=== PATIENT | male | born 1970 | race Caucasian/White ===

== ENCOUNTER 2018-10-01 05:07 | Observation (INO) | payer OTHER, SELFPAY ==
[2018-10-01] VITALS (13 sets, daily range): BP systolic 114–167; BP diastolic 65–84; PULSE 64–84; RESP 12–23; TEMP 36.5–37.3; O2SAT 94–99
--- NOTE | 2018-10-01 05:32 | W.ED.GENAD ---
Discharge Plan Disposition Patient Disposition: [facility] INPATIENT Discharge Details Chief Complaint: Abd Prob Clinical Impression: Acute cholecystitis, Abdominal right upper quadrant tenderness Primary Care Provider: Jose E Jessica ED Provider: Drake Oakley Home Meds and New Rx's Prescriptions: No Action No Known Home Meds RF: 0 Medical Decision Making This is a pleasant 48-year-old male who presents today for evaluation of right upper quadrant abdominal pain. It is been present since 6 PM and began after eating. It radiates to his back, and it is sharp and achy in nature. It is associated with nausea no vomiting. Patient had an ultrasound done as an outpatient and surgical consult over a month ago, at which point he had gallstones but no evidence of impaction or cholecystitis. He was seen by Dr. Mena at that time. Currently the patient signs and symptoms are concerning for gallbladder pathology. We will get a CT scan to evaluate for any other acute process including intrahepatic abscess, intestinal pathology, or other abnormality. Currently we do not have ultrasound capability. We will control the patient's pain, rehydrate him, and pending laboratory and imaging workup consult surgery. 6:[address] results have returned and there is evidence of notable calcification in the gallbladder neck, with mild gallbladder distention and mild wall thickening. No evidence of ductal dilatation. Patient's transaminases also notably elevated compared to prior laboratory workup. Alk phos is also high. No white count. Troponin is 0.02. Lipase is normal. Pain is notably well controlled at this time. With the patient's physical exam findings, laboratory workup, and CT findings I feel his current clinical scenario is clinically correlative with cholecystitis. We have contacted surgery and I discussed the case with Dr. Briggs, he will come in for further evaluation of the patient. 7:[address] Briggs has seen and assessed the patient. He would like to bring the patient to the OR for potential cholecystectomy. I have extensively reviewed the treatment plan with the patient. I have addressed all patient concerns at this time. I have also discussed the plan with the admitting physician and they agree with the current assessment and plan and have agreed to assume responsibility for the patient. All parties demonstrate verbal understanding and agreement with our assessment and plan at this time. EKG 5:34 Rate 67, sinus rhythm, intervals normal, no ST elevations or depressions, no T wave inversions, no Q waves, minimal peaking of T waves in V3 V4 and V5. FINDINGS: Lower thorax: No acute findings. Questioned 2 mm nodule on the first image in the right fissure ABDOMEN: Liver: Hepatomegaly. Minimal intrahepatic biliary ductal prominence Gallbladder and bile ducts: Large rim calcified gallstone in the gallbladder neck with mild gallbladder distention and mild wall thickening. Additional faint calcified gallstones noted. No ductal dilation. Pancreas: Normal. No ductal dilation. Spleen: Normal. No splenomegaly. Adrenals: Normal. No mass. Kidneys and ureters: Normal. No hydronephrosis. Stomach and bowel: Borderline dilated loops of distal ileum filled with fluid may represent mild ileus. Appendix: No evidence of appendicitis. PELVIS: Bladder: Unremarkable as visualized. Reproductive: Unremarkable as visualized. ABDOMEN and PELVIS: Intraperitoneal space: Normal. No free air. No significant fluid collection. Bones/joints: No acute fracture. No dislocation. Chronic spondylolysis with grade I spondylolisthesis at L5-S1. Degenerative changes in the lumbar spine Soft tissues: Unremarkable. Vasculature: Normal. No abdominal aortic aneurysm. Lymph nodes: Normal. No enlarged lymph nodes. IMPRESSION: Abnormal gallbladder as described. Further evaluation with right upper quadrant ultrasound recommended Hepatomegaly and minimal intrahepatic biliary ductal prominence Question mild ileus in the distal ileum as noted Chronic pars defects with mild spondylolisthesis at L5-S1 Dictated and Authenticated by: Deandre Ann MD. HPI General Date/Time Provider Initiated Documentation: 10/01/18 05:20. HPI Narrative: This is a 48-year-old male with no significant past medical history who presents today for right upper quadrant pain. Patient has had right upper quadrant pain on an outpatient basis for which she is gotten an outpatient ultrasound which showed gallstones, but no evidence of obstruction or cholecystitis. He has seen Dr. Aguilar on an outpatient basis for evaluation of this. Patient states that he has been doing well with no significant problems until last night when after eating he had notable sharp and achy right upper quadrant pain. It is associated with nausea. It is made worse with pain and food, he has had nothing to eat since then because of the symptoms. Radiates straight to his back, which she describes as a stabbing sensation right into his back. The patient states that it is not improved by ibuprofen. He denies any diarrhea, hematemesis, hematochezia, melena, or acholic stool. Patient denies any other symptoms. Surgical history is positive for a TNA, he denies IV or illicit drug use, he denies any pertinent family history. Related Data Home Medications Medication Instructions Recorded Confirmed Unknown [No Known Home Meds] 11/21/16 10/01/18 Allergies Allergy/AdvReac Type Severity Reaction Status Date / Time No Known Allergies Allergy Unverified 10/01/18 05:14 General Stated Complaint: Abd Prob DARREN: 3 Review of Systems Review of Systems All systems reviewed & are unremarkable except as noted in HPI and below PFSH Social History household members: significant other Smoking/Tobacco Use Status: Former Tobacco Use alcohol intake: former substance use type: does not use Exam Narrative Exam Narrative: 1.Const: Well-nourished, Well-developed, appearing stated age 2.Eyes: PERRL, no conjunctival injection, and symmetrical lids. 3.ENT: Atraumatic external nose and ears. Moist MM. Neck: Symmetric, trachea midline, No thyromegaly. 4.CVS: +S1/S2, No murmurs or gallops. Peripheral pulses 2+ and equal in all extremities. Brisk capillary refill in all extremities. 5.RESP: Unlabored respiratory effort. Clear to auscultation bilaterally. No wheezes rales or rhonchi 6.GI: Soft, nondistended, no hepatosplenomegaly. No guarding or rebound. Notable right upper quadrant tenderness on palpation. Oddly enough there is no worsening of pain with inspiration or cessation of pain with inspiration. Bowel sounds are present. 7.MSK: Normocephalic/Atraumatic, Extremities w/o deformity or ttp No cyanosis or clubbing, Normal movement of all extremities 8.Skin: Warm, Dry. No rashes or lesions. 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 Sensation grossly intact, no focal neurologic deficits. 10.Psych: (AAO) x3. Appropriate mood and affect Course Vital Signs Temperature 36.5 C 10/01/18 05:11 Pulse 84 10/01/18 05:11 Respiratory Rate 20 10/01/18 05:11 Blood Pressure 167/84 H 10/01/18 05:11 Pulse Oximetry 98 10/01/18 05:11 Temperature 36.5 C 10/01/18 05:11 Temperature Source Temporal Artery Scan 10/01/18 05:11 Pulse 84 10/01/18 05:11 Respiratory Rate 20 10/01/18 05:11 Respiratory Effort Non-Labored 10/01/18 05:11 Blood Pressure 167/84 H 10/01/18 05:11 Blood Pressure Position Sitting 10/01/18 05:11 Pulse Oximetry 98 10/01/18 05:11 Oxygen Delivery Method Room Air 10/01/18 05:11 Oxygen Flow Rate 0 10/01/18 05:11 Pain Level 9 10/01/18 05:15
[2018-10-01] MEDS: MORPHine 10 MG/ML VIAL 4 MG IVP (05:43)
[2018-10-01] MEDS: Ketorolac 30 MG/ML VIAL 15 MG IVP (05:43)
[2018-10-01] MEDS: Normal Saline 1,000 ML 1000 ML IV (05:44)
[2018-10-01 05:45] LABS: Abs Immature Grans 0.08 k/cumm (0.0-0.09); Absolute Basophil Count 0.03 k/cumm (0.0-0.2); Absolute Eosinophil Count 0.06 k/cumm (0.0-0.7); Absolute Lymphocyte Count 1.75 k/cumm (1.2-3.4); Absolute Monocyte Count 0.81 k/cumm (0.11-0.7); Absolute Neutrophil Count 6.32 k/cumm (1.2-6.7); Basophils % 0.3; Eosinophils % 0.7; HCT 43.1 % (40.0-50.0); HGB 14.7 g/dL (13.5-17.5); Immature Grans % 0.9; Lymphocytes % 19.3; Mean Corp. HGB Concentration 34.1 g/dL (32.0-36.0); Mean Corpuscular Hemoglobin 27.5 pg (27.0-33.0); Mean Corpuscular Volume 80.6 fL (80-95); Mean Platelet Volume 8.1 fL (8.0-11.0); Neutrophils % 69.8; Platelet Count 239 x1000/uL (130-400); RBC 5.35 m/cumm (4.50-6.00); RBC Distribution Width 13.7 % (11.8-14.1); White Blood Cell Count 9.05 k/cumm (4.4-10.8)
[2018-10-01 06:04] LABS: ALT 431 U/L (12-78); AST 392 U/L (15-37); Albumin 3.5 g/dL (3.4-5.0); Alkaline Phosphatase 225 U/L (46-116); Anion Gap 7.7 mmol/L (3-11); BUN 18 mg/dL (7-18); Bilirubin, Total 0.4 mg/dL (0.2-1.0); CO2 26.3 mmol/L (21.0-32.0); Calcium 8.9 mg/dL (8.5-10.1); Chloride 103 mmol/L (98-107); Glucose 130 mg/dL (70-100); Lipase 151 U/L (73-393); Potassium 4.4 mmol/L (3.5-5.1); Sodium 137 mmol/L (136-145); Total Protein 7.4 g/dL (6.4-8.2)
--- NOTE | 2018-10-01 06:05 | DI.CT_ITS ---
SYMPTOMS/DIAGNOSIS: RIGHT UPPER QUADRANT PAIN, NAUSEA SINCE AFTER DINNER, KNOWN GALLSTONE, ? GALLBLADDER PATHOLOGY ABDOMINAL AND PELVIC CT: CT examination of the abdomen and pelvis was performed with a bolus infusion of 100 cc of Omnipaque 350. Images obtained through the lung bases show apparent mild linear scarring or atelectasis in the right middle lobe. Hepatic parenchyma appears fairly homogeneous. Questionable hepatic mass identified at ultrasound on 04/18/18 as a homogeneous echogenic lesion suggestive of hemangioma is not appreciated on this examination. Follow-up ultrasound suggested in October 2018. There is a large calcified gallstone and additional small minimally or uncalcified gallstones. Slight gallbladder wall thickening noted. No free fluid or free air noted. No biliary dilatation. The pancreas appears normal, as does the spleen. Adrenals and kidneys are unremarkable in appearance with no evidence of urinary tract calcification or obstruction. Urinary bladder is unremarkable in appearance. No significant abdominal wall hernias seen. No abdominal or pelvic adenopathy seen. The appendix is normal. No bowel obstruction or diverticulitis. Abdominal aorta is of normal diameter and no major vascular abnormality is seen. Incidental bilateral spondylolysis of L5 with minimal anterior spondylolisthesis of L5 on S1 noted. CONCLUSION: 1. Cholelithiasis with mild gallbladder wall thickening, cholecystitis not excluded. 2. Previously noted finding at ultrasound of an echogenic homogenous hepatic mass not correlated on today's CT. Follow-up ultrasound recommended six months after the ultrasound of April 2018, which would be October 2018.
[2018-10-01] MEDS: Omnipaque 350 MG/ML 100 ML BTL IJ (06:11)
[2018-10-01 06:19] LABS: Troponin I 0.02 ng/mL (0.00-0.06)
--- NOTE | 2018-10-01 06:35 | DI.VRAD_ITS ---
EXAM: CT Abdomen and Pelvis With Contrast EXAM DATE/TIME: 10/01/2018 5:31 AM CLINICAL HISTORY: 48 years old, male; Pain; Abdominal pain; Localized; Right upper quadrant (ruq); Patient HX: Ruq pain and nausea since last evening after dinner, known gallstone from prior ultrasound. TECHNIQUE: Axial computed tomography images of the abdomen and pelvis with intravenous contrast. All CT scans at this facility use at least one of these dose optimization techniques: automated exposure control; mA and/or kV adjustment per patient size (includes targeted exams where dose is matched to clinical indication); or iterative reconstruction. Coronal and sagittal reformatted images were created and reviewed. CONTRAST: 100 ml of Omnipaque 350 administered intravenously. COMPARISON: US ABDOMEN ULTRASOUND (P) 04/18/2018 12:51 PM FINDINGS: Lower thorax: No acute findings. Questioned 2 mm nodule on the first image in the right fissure ABDOMEN: Liver: Hepatomegaly. Minimal intrahepatic biliary ductal prominence Gallbladder and bile ducts: Large rim calcified gallstone in the gallbladder neck with mild gallbladder distention and mild wall thickening. Additional faint calcified gallstones noted. No ductal dilation. Pancreas: Normal. No ductal dilation. Spleen: Normal. No splenomegaly. Adrenals: Normal. No mass. Kidneys and ureters: Normal. No hydronephrosis. Stomach and bowel: Borderline dilated loops of distal ileum filled with fluid may represent mild ileus. Appendix: No evidence of appendicitis. PELVIS: Bladder: Unremarkable as visualized. Reproductive: Unremarkable as visualized. ABDOMEN and PELVIS: Intraperitoneal space: Normal. No free air. No significant fluid collection. Bones/joints: No acute fracture. No dislocation. Chronic spondylolysis with grade I spondylolisthesis at L5-S1. Degenerative changes in the lumbar spine Soft tissues: Unremarkable. Vasculature: Normal. No abdominal aortic aneurysm. Lymph nodes: Normal. No enlarged lymph nodes. IMPRESSION: Abnormal gallbladder as described. Further evaluation with right upper quadrant ultrasound recommended Hepatomegaly and minimal intrahepatic biliary ductal prominence Question mild ileus in the distal ileum as noted Chronic pars defects with mild spondylolisthesis at L5-S1 Dictated and Authenticated by: Deandre Ann MD. Ordering:ERICA Juan MD
--- NOTE | 2018-10-01 07:11 | NUR.NOTE ---
Assumed care of patient, Surgery is at the bedside.
[2018-10-01 07:40] LABS: Bilirubin Negative (Negative); Blood Negative (Negative); Clarity Clear; Glucose Negative (Negative); Ketones Negative (Negative); Leukocyte Esterase Negative (Negative); Nitrite Negative (Negative); Urobilinogen 0.2 EU/dL (Up TO 0.2); pH 5.5 (5-8)
--- NOTE | 2018-10-01 08:02 | NUR.NOTE ---
Report called to Holly on [facility].
--- NOTE | 2018-10-01 08:13 | HPE_ITS ---
Date of service: 10/01/18 Time of Service: 08:06 Assessment and Plan (1) Symptomatic cholelithiasis: Current visit: Yes Status: Acute (2) Alkaline phosphatase elevation: Current visit: Yes Status: Acute History of Present Illness Chief Complaint: right upper quadrant pain extending to the back Narrative: started last night after Janay dinner, fried potatos may have incited this attack, had a previous one >1 month ago Pertinent Surgical Information pt had adenoids out at 5yo no allergies no meds stopped smoking in 2013 Review of Systems Review of Systems All systems reviewed & are unremarkable except as noted in HPI and below Constitutional Reports as per HPI Gastrointestinal Reports as per HPI and Reports abdominal pain [facility] Medical History Liver lesion, right lobe (Acute) Well adult (Chronic) Hyperlipidemia, unspecified (Acute 04/28/18) Hemangioma of liver (Acute 04/28/18) Diastasis of rectus abdominis (Acute 04/28/18) Calculus of gallbladder without cholecystitis without obstruction (Acute 04/28/18) Family History Grandmother No problems noted. Grandmother Neoplasm Mother No problems noted. Father No problems noted. Sister No problems noted. Brother No problems noted. Brother No problems noted. Brother No problems noted. Grandfather Heart disease Grandfather Heart disease Neoplasm Social History household members: significant other Smoking/Tobacco Use Status: Former Tobacco Use alcohol intake: former substance use type: does not use Meds Home Medications Medication Instructions Recorded Confirmed Type Unknown [No Known Home Meds] 11/21/16 10/01/18 History Allergies Allergy/AdvReac Type Severity Reaction Status Date / Time No Known Allergies Allergy Unverified 10/01/18 05:14 Exam Narrative Exam Narrative: pain has improved with pain meds pt understands his condition all RBA were dw him and his girlfriend and decided on surgery GI Inspection: normal to inspection and obesity Percussion: normal to percussion Auscultation: normal bowel sounds Abdomen image: 1. RUQ pain Results Labs : 10/01/18 05:38 10/01/18 05:38 Laboratory Results - last 24 hr 10/01/18 10/01/18 10/01/18 05:38 05:38 05:38 WBC 9.05 RBC 5.35 Hgb 14.7 Hct 43.1 MCV 80.6 MCH 27.5 MCHC 34.1 RDW 13.7 Plt Count 239 MPV 8.1 Immature Gran % 0.9 Neutrophils % 69.8 Lymphocytes % 19.3 Monocytes % 9.0 Eosinophils % 0.7 Basophils % 0.3 Absolute Neutrophils 6.32 Absolute Lymphocytes 1.75 Absolute Monocytes 0.81 H Absolute Eosinophils 0.06 Absolute Basophils 0.03 Sodium 137 Potassium 4.4 Chloride 103 Carbon Dioxide 26.3 Anion Gap 7.7 BUN 18 Creatinine 1.00 Estimated GFR/1.73 m2 >= 60.00 Glucose 130 H Calcium 8.9 Total Bilirubin 0.4 AST 392 H ALT 431 H Alkaline Phosphatase 225 H Troponin I 0.02 Total Protein 7.4 Albumin 3.5 Lipase 151 Urine Color Urine Clarity Urine pH Ur Specific [place] Urine Protein Urine Ketones Urine Blood Urine Nitrite Urine Bilirubin Urine Urobilinogen Ur Leukocyte Esterase Urine Glucose 10/01/18 07:26 WBC RBC Hgb Hct MCV MCH MCHC RDW Plt Count MPV Immature Gran % Neutrophils % Lymphocytes % Monocytes % Eosinophils % Basophils % Absolute Neutrophils Absolute Lymphocytes Absolute Monocytes Absolute Eosinophils Absolute Basophils Sodium Potassium Chloride Carbon Dioxide Anion Gap BUN Creatinine Estimated GFR/1.73 m2 Glucose Calcium Total Bilirubin AST ALT Alkaline Phosphatase Troponin I Total Protein Albumin Lipase Urine Color Yellow Urine Clarity Clear Urine pH 5.5 Ur Specific [place] 1.010 Urine Protein Negative Urine Ketones Negative Urine Blood Negative Urine Nitrite Negative Urine Bilirubin Negative Urine Urobilinogen 0.2 Ur Leukocyte Esterase Negative Urine Glucose Negative Last Vital Signs Temp 37.3 C 10/01/18 07:01 Pulse 84 10/01/18 05:11 Resp 20 10/01/18 05:11 BP 167/84 H 10/01/18 05:11 Pulse Ox 98 10/01/18 05:11
[2018-10-01] MEDS: Lactated Ringers 1,000 ML 30 ML IV ×2 (12:37→16:46)
[2018-10-01] MEDS: Omnipaque 300 MG/ML 50 ML BTL (13:46)
--- NOTE | 2018-10-01 13:58 | CHAPLAIN ---
Rohan was in surgery when I stopped by the room. I introduced myself to the family member/friend who was waiting for him and offered support.
--- NOTE | 2018-10-01 14:05 | DI.RAD_ITS ---
SYMPTOMS/DIAGNOSIS: SYMPTOMATIC CHOLELITHIASIS, ELEVATED ALK PHOS C-ARM CHOLANGIOGRAM: Fluoroscopy Time: 26.7 sec 9.43 mGy C-arm cholangiography was performed by Dr. Zia Briggs for operative cholangiography. Hard copies show normal caliber of the common bile duct and pancreatic duct with free flow of contrast material into the duodenum. No intrahepatic or extrahepatic ductal stone identified.
[2018-10-01] MEDS: Cellulose,Oxidized 4X8 1 PACKET MC (14:06)
--- NOTE | 2018-10-01 14:08 | GB_PTH ---
PATIENT: James Prasad LOC: [id number]#:[id number] AGE/SX: 48/M ROOM: 215 RE10/01/[address]: Zia Briggs III : 1970 BED: A DIS: 10/02/2018 SPEC #: [id number] RECD: 10/01/18 17:04 STATUS: ALLIE REYeimy #: [id number] ELIZABETH: 10/01/18 14:[address]: Zia Briggs III DEPT: Surgical Specimen RECD BY: Elayne Galloway ENTERED: 10/01/18 17:05 SP TYPE: GB OTHR DR: Jose E Jessica MD Tissues: 1 - GALLBLADDER Procedures: GROSS AND MICRO LEVEL 3 Comments: [id number]
[2018-10-01] MEDS: Lidocaine 1% Multi-Dose 50 ML VIAL (14:20)
--- NOTE | 2018-10-01 14:31 | W.PM.OP ---
Date of service: 10/01/18 Time of Service: 13:00 Operative Note DATE OF PROCEDURE: 10/01/18 PRE-OP DIAGNOSIS: Biliary Colic POST-OP DIAGNOSIS: other (Acute on Chronic cholecystitis with cholelithiasis) PROCEDURE: Laparoscopic Cholecystectomy with intraoperative choleangiogram SURGEON: Zia Briggs III VOLTMETER OPERATOR: Modesto Matthew ANESTHESIA: GETA (Jaspreet Norris, ENVIRONMENTAL SERVICES ATTENDANT: ASA 2, Mallampati class II) and local (1% lidocaine, 0.5% marcaine with epinephine) ESTIMATED BLOOD LOSS: 15 PATHOLOGY: other (Gallbladder) COMPLICATIONS: None Patient was transported to: PACU Patient's condition: stable Indications: 48-year-old gentleman presenting emergency room with 24 hours of right upper quadrant pain radiating to the back. This is precipitated by eating fatty food. He had a similar incident of pain less than a month ago which resolved on its own but currently this pain is been unresolving. Prior ultrasound studies did demonstrate a large stone in the gallbladder. He has been seen prior by general surgeon who recommended cholecystectomy if he continued to be symptomatic. Recommended he undergo laparoscopic cholecystectomy today; as he is shown that he has become symptomatic. Surgical procedure was reviewed with him, and the risks of the procedure discussed. All his questions were answered to his satisfaction consent was obtained to proceed with cholecystectomy Findings: The gallbladder was identified in the right upper quadrant. It had characteristic findings of both acute and chronic cholecystitis with a large stone in the infundibulum of the gallbladder. The gallbladder was subsequently removed in the standard laparoscopic fashion. Procedure Description: The patient was brought to the pre-anesthesia staging area where his name and identification were confirmed. The patient had bilateral erector spinae blocks placed at the T7-8 level by anesthesia, please see separate procedure note for this procedure. The patient was then brought to the operating room, and placed supine on the table. All bony prominence were padded. The patient received pre-operative antibiotics, 3 g Ancef. An appropriate time out was performed addressing the patient's: identification, allergies, medications, antibiotics, blood bank, metal, and fire risks. An endotracheal tube was placed by the ENVIRONMENTAL SERVICES ATTENDANT, and sedation was titrated for effect. Once adequate sedation was achieved, the abdomen was prepped with chloroprep, and blocked draped in the standard sterile fashion. We began by making a 4mm linear, transverse, supraumbilical incision, blunt dissection was carried down to the linea alba which was grasped and elevated. A veress needle was then inserted into the abdomen, with its positioning checked by the saline drop test. The abdomen was then inflated to 15 mmHg without apparent incident. A 5mm trocar was then inserted into the abdomen, through the incision, under direct visualization. The area under the veress needle, and trocar insertion was inspected, and no there was no apparent injury. The upper abdomen was then inspected 180 degrees. The Gallbladder was identified in the right upper quadrant there was characteristic discoloration and some inflammatory changes which are consistent with acute and chronic cholecystitis. The liver appeared normal, and no other acute pathology was identified. The remainder of my trocars were placed under direct visualization. A 12 mm trocar was placed subxiphoid in the midline. Two 5mm trocars were placed in the RUQ, two centimeters subcostal. One was placed at the anterior axillary line, and the other was placed at the mid-clavicular line. The gallbladder was then grasped by the fundus which was elevated up over the dome of theliver. The patient was placed in reverse trendelenburg with left side down. The infundibulum was then exposed; subsequently, manipulated caudad, and laterally. This exposed the triangle of Calot. The peritoneum overlying the cystic duct, and artery was then stripped from proximal from the gallbladder to distal exposing the cystic duct and artery. These were then circumferentially dissected which exposed the critial view of the cystic duct, cystic artery, with liver behind. A small branch of the cystic artery was identified during dissection and circumferentially dissected and subsequently clipped both proximal and distal to the gallbladder. A Noriega clamp was placed over the infundibulum, and a catheter threaded into the duct side of the infundibulum. Its positionin was then tested with saline. Once positioning was confirmed a cholangiogram was performd. The choleangiogram showed the cystic duct, CBD, common hepatic ducts, and left and right hepatic ducts clearly. There was prompt uptake of contrast into the duodenum, and no filling defects were visualized. The cystic duct and artery were then clipped with to clips distal to the gallbladder, one clip proximal. The cystic duct and cystic artery were then divided between the proximal and distal clips. The gallbladder was then excised from the gallbladder fossa of the liver in the standard antegrade fashion. A small posterior arterial bleeder was found during the antegrade dissection and clipped with good hemostatic effect. The posterior arterial bleeder appeared to be a posterior branch of the cystic duct. Once, the gallbladder was from the fossa, it was placed in a endocatch bag and removed from the abdomen. The right upper quadrant was then irrigated. Hemostasis was obtained with cautery, and surgicel was used to re-enforce hemostasis in the fossa. The abdomen was then desufflated, and the trocars removed under direct visualization. The 12mm trocar fascia was closed with a 0 vicryl suture in a figure of eight fashion. All skin inscisions were closed with 4-0 vicryl in a subcuticular fashion. Local was infiltrated around all the incsions. All counts were reported as correct times two. The patient was extubated in the OR, and brought to the post ansthesia care unit in good condition.
--- NOTE | 2018-10-01 14:35 | ROE_ITS ---
Date of service: 10/01/18 Time of Service: 13:00 Operative Note DATE OF PROCEDURE: 10/01/18 PRE-OP DIAGNOSIS: Biliary Colic POST-OP DIAGNOSIS: other (Acute on Chronic cholecystitis with cholelithiasis) PROCEDURE: Laparoscopic Cholecystectomy with intraoperative choleangiogram SURGEON: Zia Briggs III CELERY WRAPPER: Modesto Matthew ANESTHESIA: GETA (Jaspreet Norris, TELEVISION MAINTENANCE WORKER: ASA 2, Mallampati class II) and local (1% lidocaine, 0.5% marcaine with epinephine) ESTIMATED BLOOD LOSS: 15 PATHOLOGY: other (Gallbladder) COMPLICATIONS: None Patient was transported to: PACU Patient's condition: stable Indications: 48-year-old gentleman presenting emergency room with 24 hours of right upper quadrant pain radiating to the back. This is precipitated by eating fatty food. He had a similar incident of pain less than a month ago which resolved on its own but currently this pain is been unresolving. Prior ultrasound studies did demonstrate a large stone in the gallbladder. He has been seen prior by general surgeon who recommended cholecystectomy if he continued to be symptomatic. Recommended he undergo laparoscopic cholecystectomy today; as he is shown that he has become symptomatic. Surgical procedure was reviewed with him, and the risks of the procedure discussed. All his questions were answered to his satisfaction consent was obtained to proceed with cholecystectomy Findings: The gallbladder was identified in the right upper quadrant. It had characteristic findings of both acute and chronic cholecystitis with a large stone in the infundibulum of the gallbladder. The gallbladder was subsequently removed in the standard laparoscopic fashion. Procedure Description: The patient was brought to the pre-anesthesia staging area where his name and identification were confirmed. The patient had bilateral erector spinae blocks placed at the T7-8 level by anesthesia, please see separate procedure note for this procedure. The patient was then brought to the operating room, and placed supine on the table. All bony prominence were padded. The patient received pre- operative antibiotics, 3 g Ancef. An appropriate time out was performed addressing the patient's: identification, allergies, medications, antibiotics, blood bank, metal, and fire risks. An endotracheal tube was placed by the TELEVISION MAINTENANCE WORKER, and sedation was titrated for effect. Once adequate sedation was achieved, the abdomen was prepped with chloroprep, and blocked draped in the standard sterile fashion. We began by making a 4mm linear, transverse, supraumbilical incision, blunt dissection was carried down to the linea alba which was grasped and elevated. A veress needle was then inserted into the abdomen, with its positioning checked by the saline drop test. The abdomen was then inflated to 15 mmHg without apparent incident. A 5mm trocar was then inserted into the abdomen, through the incision, under direct visualization. The area under the veress needle, and trocar insertion was inspected, and no there was no apparent injury. The upper abdomen was then inspected 180 degrees. The Gallbladder was identified in the right upper quadrant there was characteristic discoloration and some inflammatory changes which are consistent with acute and chronic cholecystitis. The liver appeared normal, and no other acute pathology was identified. The remainder of my trocars were placed under direct visualization. A 12 mm trocar was placed subxiphoid in the midline. Two 5mm trocars were placed in the RUQ, two centimeters subcostal. One was placed at the anterior axillary line, and the other was placed at the mid-clavicular line. The gallbladder was then grasped by the fundus which was elevated up over the dome of theliver. The patient was placed in reverse trendelenburg with left side down. The infundibulum was then exposed; subsequently, manipulated caudad, and laterally. This exposed the triangle of Calot. The peritoneum overlying the cystic duct, and artery was then stripped from proximal from the gallbladder to distal exposing the cystic duct and artery. These were then circumferentially dissected which exposed the critial view of the cystic duct, cystic artery, with liver behind. A small branch of the cystic artery was identified during dissection and circumferentially dissected and subsequently clipped both proximal and distal to the gallbladder. A Noriega clamp was placed over the infundibulum, and a catheter threaded into the duct side of the infundibulum. I ts positionin was then tested with saline. Once positioning was confirmed a cholangiogram was performd. The choleangiogram showed the cystic duct, CBD, common hepatic ducts, and left and right hepatic ducts clearly. There was prompt uptake of contrast into the duodenum, and no filling defects were visualized. The cystic duct and artery were then clipped with to clips distal to the gallbladder, one clip proximal. The cystic duct and cystic artery were then divided between the proximal and distal clips. The gallbladder was then excised from the gallbladder fossa of the liver in the standard antegrade fashion. A small posterior arterial bleeder was found during the antegrade dissection and clipped with good hemostatic effect. The posterior arterial bleeder appeared to be a posterior branch of the cystic duct. Once, the gallbladder was from the fossa, it was placed in a endocatch bag and removed from the abdomen. The right upper quadrant was then irrigated. Hemostasis was obtained with cautery, and surgicel was used to re-enforce hemostasis in the fossa. The abdomen was then desufflated, and the trocars removed under direct visualization. The 12mm trocar fascia was closed with a 0 vicryl suture in a figure of eight fashion. All skin inscisions were closed with 4-0 vicryl in a subcuticular fashion. Local was infiltrated around all the incsions. All counts were reported as correct times two. The patient was extubated in the OR, and brought to the post ansthesia care unit in good condition.
--- NOTE | 2018-10-01 14:51 | PGE_ITS ---
Date of Service Date of service: 10/01/18 Time of Service: 14:50 Subjective Patient reports: no new complaints Interval history since last seen: pt girlfriend Saadia called and informed of case findings Objective Objective Clinical Data: Abnormal lab results 10/01/18 10/01/18 Range/Units 05:38 05:38 Absolute Monocytes 0.81 H (0.11-0.7) k/cumm Glucose 130 H (70-100) mg/dL AST 392 H (15-37) U/L ALT 431 H (12-78) U/L Alkaline Phosphatase 225 H (46-116) U/L Vital Signs Temperature 36.6 C 10/01/18 14:41 Temperature Source Tympanic 10/01/18 09:22 Pulse 78 10/01/18 14:41 Pulse Rhythm Regular 10/01/18 09:35 Respiratory Rate 19 10/01/18 14:41 Respiratory Effort Non-Labored 10/01/18 09:35 Respiratory Depth Normal 10/01/18 09:35 Respiratory Pattern Normal 10/01/18 09:35 Blood Pressure 129/78 10/01/18 14:41 Blood Pressure Position Sitting 10/01/18 05:11 Pulse Oximetry 99 10/01/18 14:41 Respiratory End-tidal CO2 36 10/01/18 14:41 Oxygen Delivery Method Nasal Cannula 10/01/18 14:41 Oxygen Flow Rate 2 10/01/18 14:41 Pain Level 0 10/01/18 09:35 Comment 10/01/18 09:22 Intake & Output 09/30/18 10/01/18 10/01/18 23:59 11:59 23:59 Intake Total 1000 / 1900 900 / 1900 Output Total Balance 1000 / 1885 885 / 1885 Weight 120.202 kg Intake: IV 1000 / 1900 900 / 1900 Output: Estimated Blood Loss Other: Urine Appearance Clear Comment States voided into toilet upon arrival. Patient removed collection hat from toilet & did not use. Explained use & reason. Emesis Description None Laboratory Results WBC 9.05 k/cumm (4.4-10.8) 10/01/18 05:38 RBC 5.35 m/cumm (4.50-6.00) 10/01/18 05:38 Hgb 14.7 g/dL (13.5-17.5) 10/01/18 05:38 Hct 43.1 % (40.0-50.0) 10/01/18 05:38 MCV 80.6 fL (80-95) 10/01/18 05:38 MCH 27.5 pg (27.0-33.0) 10/01/18 05:38 MCHC 34.1 g/dL (32.0-36.0) 10/01/18 05:38 RDW 13.7 % (11.8-14.1) 10/01/18 05:38 Plt Count 239 x1000/uL (130-400) 10/01/18 05:38 MPV 8.1 fL (8.0-11.0) 10/01/18 05:38 Immature Gran % 0.9 10/01/18 05:38 Neutrophils % 69.8 10/01/18 05:38 Lymphocytes % 19.3 10/01/18 05:38 Monocytes % 9.0 10/01/18 05:38 Eosinophils % 0.7 10/01/18 05:38 Basophils % 0.3 10/01/18 05:38 Absolute Neutrophils 6.32 k/cumm (1.2-6.7) 10/01/18 05:38 Absolute Lymphocytes 1.75 k/cumm (1.2-3.4) 10/01/18 05:38 Absolute Monocytes 0.81 k/cumm (0.11-0.7) H 10/01/18 05:38 Absolute Eosinophils 0.06 k/cumm (0.0-0.7) 10/01/18 05:38 Absolute Basophils 0.03 k/cumm (0.0-0.2) 10/01/18 05:38 Sodium 137 mmol/L (136-145) 10/01/18 05:38 Potassium 4.4 mmol/L (3.5-5.1) 10/01/18 05:38 Chloride 103 mmol/L (98-107) 10/01/18 05:38 Carbon Dioxide 26.3 mmol/L (21.0-32.0) 10/01/18 05:38 Anion Gap 7.7 mmol/L (3-11) 10/01/18 05:38 BUN 18 mg/dL (7-18) 10/01/18 05:38 Creatinine 1.00 mg/dL (0.70-1.30) 10/01/18 05:38 Estimated GFR/1.73 m2 >= 60.00 (mL/min/1.73m2) 10/01/18 05:38 Glucose 130 mg/dL (70-100) H 10/01/18 05:38 Calcium 8.9 mg/dL (8.5-10.1) 10/01/18 05:38 Total Bilirubin 0.4 mg/dL (0.2-1.0) 10/01/18 05:38 AST 392 U/L (15-37) H 10/01/18 05:38 ALT 431 U/L (12-78) H 10/01/18 05:38 Alkaline Phosphatase 225 U/L (46-116) H 10/01/18 05:38 Troponin I 0.02 ng/mL (0.00-0.06) 10/01/18 05:38 Total Protein 7.4 g/dL (6.4-8.2) 10/01/18 05:38 Albumin 3.5 g/dL (3.4-5.0) 10/01/18 05:38 Lipase 151 U/L (73-393) 10/01/18 05:38 Urine Color Yellow (Yellow) 10/01/18 07:26 Urine Clarity Clear 10/01/18 07:26 Urine pH 5.5 (5-8) 10/01/18 07:26 Ur Specific [place] 1.010 (1.005-1.025) 10/01/18 07:26 Urine Protein Negative mg/dL (Negative) 10/01/18 07:26 Urine Ketones Negative mg/dL (Negative) 10/01/18 07:26 Urine Blood Negative (Negative) 10/01/18 07:26 Urine Nitrite Negative (Negative) 10/01/18 07:26 Urine Bilirubin Negative (Negative) 10/01/18 07:26 Urine Urobilinogen 0.2 EU/dL (Up TO 0.2) 10/01/18 07:26 Ur Leukocyte Esterase Negative (Negative) 10/01/18 07:26 Urine Glucose Negative mg/dL (Negative) 10/01/18 07:26
[2018-10-01] MEDS: fentaNYL 100 MCG/2 ML VIAL IVP (15:01)
--- NOTE | 2018-10-01 15:54 | NUR.NOTE ---
Pt brought to the unit from PACU added over to me by Sharmaine from that unit. Pt ambulated from stretcher to the bed in the room. He is conscious alert and rational but drowsy from his procedure. He came to the room drinking jerilyn ailyn, same was being tolerated. on further assessment mucus membrane pink and moist, chest clear, abdomen obese, surgcal wounds noted no bleeding or oozing noted to the incisions. Same closed with wound glue. Incision to below the Xiphoid area measures3.5cm, incision above the umbilical area measures 2cm, to the right upper quadrant measure 1.5 respectively.No abdominal sounds heard when ascultated. IV access noted to the right wrist with 18G branula Lactated Ringer progressing from PACU. Teds noted to the lower extremities and SCDS applied as per protocol.
[2018-10-01] MEDS: ACETAMINOPHEN 1,000 MG/100 ML BTL 400 MG IVPB (16:45)
[2018-10-01] MEDS: Normal Saline Flush 10 ML SYR IVP ×2 (16:46→18:49)
[2018-10-01] MEDS: Enoxaparin 40 MG/0.4 ML SYR SC (18:49)
[2018-10-01] MEDS: HYDROmorphone 2 MG/ML VIAL IVP (18:49)
[2018-10-02 00:23] VITALS: BP 148/77; PULSE 66; RESP 18; TEMP 36.5; O2SAT 96
[2018-10-02 07:45] VITALS: BP 148/91; PULSE 63; RESP 18; TEMP 36.5; O2SAT 97
--- NOTE | 2018-10-02 08:27 | W.PM.DS.N ---
Date of service: 10/02/18 Time of Service: 08:27 DS: Diagnosis Discharge Diagnosis (1) Symptomatic cholelithiasis: Status: Acute (2) Alkaline phosphatase elevation: Status: Acute (3) Acute cholecystitis due to biliary calculus: Status: Acute Discharge Plan Disposition Patient Disposition: HOME Condition: Stable Discharge Details Reason For Visit: SYPTOMA RIGO,ELEVATED ALK PHOS Admit Date/Time: 10/01/18 08:16 Admit Provider: Zia Briggs III Attending Provider: Zia Briggs III Primary Care Provider: Jose E Jessica Hospital Course Hospital Course: pt came in after billiary colic attack. he was admitted and underwent a lap rigo with cholangiogram pt did well min post op pain, awaiting path but intraop appeared to be acute rigo Home Meds and New Rx's Prescriptions: New ibuprofen 800 mg tablet 800 mg PO TID PRN (Reason: abdominal pain) Qty: 30 RF: 0 Discharge Instructions Referrals: Modesto Matthew DO [ [facility] STAFF PHYSICIAN] - 10/15/18 8:00 am (post op lap rigo) Activity:: Activity as Tolerated Equipment/Supplies:: No Equipment Needed Diet:: As Tolerated Discharge Orders Discharge Orders: Discharge Order (Routine); Ordered 10/02/18 Ordered By: Zia Briggs III DS: Summary Time spent discussing smoking cessation with patient: more than 10 minutes Status at Discharge Functional status at discharge: independent ambulation Time Spent with Patient Greater than 30 minutes Quality: AMI Clinical Trial Participant: No Exam Narrative Exam Narrative: doing well abd pain resolved GI Inspection: normal to inspection and obesity Palpation: soft and tender Percussion: normal to percussion DS: Data Vitals/I&O Vitals and I&O: Vital Signs Temperature 36.5 C 10/02/18 00:23 Temperature Source Tympanic 10/02/18 00:23 Pulse 66 10/02/18 00:23 Pulse Rhythm Regular 10/02/18 00:19 Respiratory Rate 18 10/02/18 00:23 Respiratory Effort Non-Labored 10/02/18 00:19 Respiratory Depth Normal 10/02/18 00:19 Respiratory Pattern Normal 10/02/18 00:19 Blood Pressure 148/77 H 10/02/18 00:23 Blood Pressure Position Sitting 10/01/18 05:11 Pulse Oximetry 96 10/02/18 00:23 Respiratory End-tidal CO2 36 10/01/18 15:14 Oxygen Delivery Method Room Air 10/02/18 00:23 Oxygen Flow Rate 0 10/02/18 00:23 Pain Level 3 10/01/18 20:49 Comment 10/01/18 09:22 Intake & Output 10/01/18 10/01/18 10/02/18 11:59 23:59 11:59 Intake Total 1000 / 2336.5 1336.5 / 2336.5 240 / 240 Output Total 515 / 515 2300 / 2300 Balance 1000 / 1821.5 821.5 / 1821.5 -2060 / -2060 Weight 120.202 kg Intake: IV 1000 / 2096.5 1096.5 / 2096.5 Oral 240 / 240 240 / 240 Output: Urine 500 / 500 2300 / 2300 Estimated Blood Loss Other: Urine Color Yellow Yellow Urine Appearance Clear Clear Clear Urine Odor Normal Comment States voided into toilet upon arrival. Patient removed collection hat from toilet & did not use. Explained use & reason. Stool Size Large Large Stool Characteristics Soft Formed Brown Emesis Description None Voiding Methods Urinal [facility] Medical History Acute cholecystitis due to biliary calculus (Acute) Alkaline phosphatase elevation (Acute) Symptomatic cholelithiasis (Acute) Well adult (Chronic) Hyperlipidemia, unspecified (Acute 04/28/18) Hemangioma of liver (Acute 04/28/18) Diastasis of rectus abdominis (Acute 04/28/18) Calculus of gallbladder without cholecystitis without obstruction (Acute 04/28/18) Family History Grandmother No problems noted. Grandmother Neoplasm Mother No problems noted. Father No problems noted. Sister No problems noted. Brother No problems noted. Brother No problems noted. Brother No problems noted. Grandfather Heart disease Grandfather Heart disease Neoplasm Social History household members: significant other Smoking/Tobacco Use Status: Former Tobacco Use alcohol intake: former substance use type: does not use
== END 2018-10-02 10:42 | disposition home or self-care (01) | DRG 419 ==
LOC: ER 08:28 → MS 12:06
PROVIDERS: Admitting Provider Surgery; Emergency Provider Student in an Organized Health Care Education/Training Program; PCP Family Medicine; Visit Provider Surgery
PROC: 0FT44ZZ Resection of Gallbladder, Percutaneous Endoscopic Approach (ICD-10-PCS; CPT 47563; principal; 2018-10-01 10:45)
DX: K80.12 Calculus of gallbladder with acute and chronic cholecystitis without obstruction (principal); R74.8 Abnormal levels of other serum enzymes; G89.18 Other acute postprocedural pain
CPT/HCPCS: 47563; 36415; 80053; 83690; 93005; 96361; 96374; 96375; 99222; 99285; J1650; NC; 74177; 74300; 81003; 84484; 85025; 88304; 93010; G0378; J0131; J1100; J1885; J2250; J2270; J2405; J3010; J3490; Q9967

== ENCOUNTER 2018-11-10 00:40 | Outpatient (CLI) | payer OTHER, SELFPAY ==
--- NOTE | 2018-11-10 08:25 | DI.US_ITS ---
SYMPTOM/DIAGNOSIS: REASSESS HEPATIC LESION (RT HEPATIC LOBE) LIMITED ABDOMEN ULTRASOUND: The exam was performed to follow up a question echogenic area in the liver, seen on previous ultrasound of 18 Apr 2018. The patient has also undergone CT and MRI which did not demonstrate any abnormalities. No mass is identified on today's exam. The finding on the previous CT corresponds to fat in the region of the falciform ligament. The patient is status post cholecystectomy. IMPRESSION: No evidence of hepatic mass. The findings on previous ultrasound are consistent with the falciform ligament as was confirmed on the previous MRI as well as CT.
== END 2018-11-10 01:00 ==
PROVIDERS: PCP Family Medicine; Visit Provider Family Medicine
DX: R10.9 Unspecified abdominal pain (principal); K76.9 Liver disease, unspecified; Z90.49 Acquired absence of other specified parts of digestive tract
CPT/HCPCS: 76705

== ENCOUNTER 2019-08-06 02:36 | Outpatient (CLI) | payer OTHER, SELFPAY ==
[2019-08-06 10:52] LABS: Hemoglobin A1C 6.2 % (4.5-6.2)
[2019-08-07 10:32] LABS: Lyme Ab w Rflx to Lyme Confirm Negative
== END 2019-08-06 02:56 ==
PROVIDERS: PCP Family Medicine; Visit Provider Family Medicine
DX: E74.39 Other disorders of intestinal carbohydrate absorption (principal); M25.50 Pain in unspecified joint
CPT/HCPCS: 36415; 83036; 86140; 86618

== ENCOUNTER 2021-01-02 04:24 | Outpatient (CLI) | payer BC, SELFPAY ==
[2021-01-02 08:14] LABS: ALT 131 U/L (16-63); AST 63 U/L (15-37); Alkaline Phosphatase 247 U/L (46-116); Bilirubin, Total 0.4 mg/dL (0.2-1.0); Calculated LDL 96 mg/dL (<100); Cholesterol 162 mg/dL (<200); HDL Cholesterol 43 mg/dL (40-60); Total Protein 7.6 g/dL (6.4-8.2); Triglyceride 116 mg/dL (<150)
[2021-01-02 08:24] LABS: Bilirubin, Direct 0.1 mg/dL (0.0-0.2)
[2021-01-02 16:35] LABS: PSA, Screening 0.2 ng/mL (0.0-3.5)
[2021-01-05 10:03] LABS: Hepatitis C Ab w Rflx HCV PCR Negative (Negative)
== END 2021-01-02 04:25 | disposition home or self-care (01) ==
LOC: LBO 04:24
PROVIDERS: PCP Family Medicine; Visit Provider Family Medicine
DX: E78.5 Hyperlipidemia, unspecified (principal); R73.9 Hyperglycemia, unspecified; G72.89 Other specified myopathies; Z12.5 Encounter for screening for malignant neoplasm of prostate; Z11.59 Encounter for screening for other viral diseases
CPT/HCPCS: 36415; 80061; 80076; 84153; 86803; 83036

== ENCOUNTER 2021-05-03 04:10 | Outpatient (CLI) | payer BC, SELFPAY ==
--- NOTE | 2021-05-03 15:30 | RT.EKG_ITS ---
APPROVED REPORT Exam: Resting ECG Reason for Exam: To be performed morning of, prior to colo Patient Location: O HR:66 bpm ECG Measurements Heart Rate 66 AXIS NV 169 P 62 QRSd 98 QRS -31 QT 380 T 28 QTc 399 Conclusion Sinus rhythm...normal P axis, V-rate 60- 99 Left axis deviation...QRS axis (-30,-90) ST elev, probable normal early repol pattern...ST elevation, age<55
== END 2021-05-03 04:11 | disposition home or self-care (01) ==
LOC: RT 04:10
PROVIDERS: PCP Family Medicine; Visit Provider Physical Therapy Assistant
DX: R00.2 Palpitations (principal); Z01.818 Encounter for other preprocedural examination
CPT/HCPCS: 93005; 93010

== ENCOUNTER 2021-05-05 03:16 | Outpatient (CLI) | payer BC, SELFPAY ==
[2021-05-05 11:50] LABS: Source Nasal/Nares
[2021-05-05 14:14] LABS: COVID-19 PCR Negative (Negative)
== END 2021-05-05 03:17 | disposition home or self-care (01) ==
LOC: LBO 03:16
PROVIDERS: PCP Family Medicine; Visit Provider Surgery
DX: Z20.822 Contact with and (suspected) exposure to COVID-19 (principal)
CPT/HCPCS: 87635

== ENCOUNTER 2021-05-08 08:09 | Day surgery (SDC) | payer BC, SELFPAY ==
--- NOTE | 2021-05-08 06:53 | W.COLOREPORT ---
Date of service: 05/08/21 Time of Service: 09:08 Colonoscopy Report Date of procedure: 05/08/21 Pre-op diagnosis general: Colon Cancer Screening Post-op diagnosis procedure note: same Procedure: Colonoscopy Surgeon: Amy Mena Anesthesia Type: MAC (ASA 2/Anjali Noble CRNA) Estimated blood loss (mL): 0 Pathology: other (bx of small bowel) Complications: None Disposition: same day Indications: The patient is here for Colonoscopy pre-op. He has no family history of colon cancer. He has not had any bowel habit changes. -Discussed colonoscopy bowel prep as well as the procedure. Discussed possible complications of the procedure to include bleeding, pain, perforation, missed small lesion/polyp, sore throat, aspiration and adverse reaction to the medications. Questions were answered to patient?s satisfaction. No guarantees were implied or given. Prep: Miralax/Dulcolax Procedure Start Time: :08 Procedure End Time: :28 Retraction Time: 14 minutes Findings: Normal colon ? acute inflammation of the terminal ileum Procedure Description: After informed consent was obtained the patient was taken to the procedure room and placed in a left decubitous position. Monitors were applied and a time out was done. The patients name, date of , procedure, allergies to medications and metal in their body was reviewed. The patient was then sedated. Once sedated and comfortable a rectal exam was done. External exam was normal. Internal exam revealed a normal sphincter tone and no palpable masses. The prostate felt smooth. The scope was then introduced and retro-flexed. No internal hemorrhoids, polyps or masses were identified on retro-flexion. The scope was then advanced to the cecum without difficulty. The ileocecal vlave and appendiceal orifice were identified. The prep was adequate. The scope was then slowly retracted over 14 minutes back into the rectum. There were no polyps and no diverticulosis noted. The scope was removed and the patient was woken up and taken back to Same day surgery in stable condition. The patient tolerated the procedure well and there were no immediate complications. Follow up: The patient should follow up in 10 years unless they develop changes in bowel habits or other new gastrointestinal complaints.
--- NOTE | 2021-05-08 06:54 | W.PM.DSUDISC ---
Discharge Plan Disposition Patient Disposition: HOME Condition: Good Discharge Details Reason For Visit: Colonoscopy Attending Provider: Amy Mena Primary Care Provider: Jose E Jessica Home Meds and New Rx's Prescriptions: Discontinued bisacodyl [Dulcolax (bisacodyl)] 5 mg tablet,delayed release (DR/EC) 5 mg PO ONCE Qty: 4 RF: 0 polyethylene glycol 3350 17 gram/dose powder 238 g PO ONCE Qty: 238 RF: 0 Discharge Instructions Additional Instructions: Findings: Normal large intestine Follow up: 10 years Please call if you develop: fevers >101.5 Nausea or Vomiting Abdominal pain that is not transient Rectal bleeding that is more then a tbsp A hard abdomen and inability to pass gas DAY SURGERY UNIT POST ENDOSCOPY INSTRUCTIONS Instructions for everyone who is given Anesthesia: For your safety, please do the following for the next 24 Hours: a. Do not drive or operate dangerous equipment b. Do not drink alcohol beverages or use any recreational drugs for the first 24 hours or while taking pain medications. The medications in your body may have a reaction that can be dangerous. c. Do not make any important decisions or sign any important papers 1. Generally there are no restrictions on your activity after a day or so has gone by, but you may feel a bit fatigued for a few days. 2. After you arrive home you may have a light meal and return to a normal diet as you can tolerate it without feeling sick to your stomach. 3. After surgery, you may feel pain or discomfort. This should be only transient, but if it persists please contact your doctor. 4. If there are any questions regarding the findings of your procedure, please feel free to contact your doctor. 6. If you are unable to contact your doctor with a problem, contact the hospital at [phone]. 7. Continue all your regular medications unless directed otherwise. I understand the above instructions and have no questions. Signature of Patient or Responsible Adult Escort Date/Time Name of Responsible Adult Escort Signature of Nurse Date/Time Activity:: Activity as Tolerated Diet:: As Tolerated Discharge Orders Discharge Orders: Discharge Order (Routine); Ordered 05/08/21 Ordered By: Amy Mena
[2021-05-08 08:13] VITALS: BP 118/77; PULSE 78; RESP 16; TEMP 36.5; O2SAT 98
--- NOTE | 2021-05-08 08:18 | W.ANESPRE ---
General Info Date of Service Date Performed: 05/08/21 Height: 5 ft 11.26 in Weight: 111.5 kg Body Mass Index (BMI): 34.0 Surgical Procedure: Operation Date: 05/08/21 09:05 Proposed Procedures Side Surgeon p Colonoscopy Amy Mena MD Meds Allergies and Home Medications Allergies Allergy/AdvReac Type Severity Reaction Status Date / Time bee venom protein (honey bee) Allergy Severe swelling Verified 05/08/21 08:27 hay Allergy Severe SEVERE SOB Uncoded 05/08/21 08:27 ticks Allergy Severe swelling Uncoded 05/08/21 08:27 at site Home Medication Medication Instructions Recorded bisacodyl 5 mg tablet,delayed 5 mg PO ONCE #4 tab 04/27/21 release polyethylene glycol 3350 17 238 g PO ONCE #238 g 04/27/21 gram/dose oral powder Current Visit Medications: Current Medications Generic Name Dose Route Start Last Admin Trade Name Freq PRN Reason Stop Dose Admin Hyoscyamine Sulfate 0.125 mg 05/08/21 06:54 Hyoscyamine 0.125 Mg Sl/Oral/Chew SL DIRECTED PRN Ringer's Solution 1,000 mls @ 80 mls/hr 05/08/21 06:00 IV 06/04/21 23:59 INFUSION [facility] IV Miscellaneous Supplies 1 each 05/08/21 06:00 Iv Access IV 06/04/21 23:59 DIRECTED JARVIS Ondansetron HCl 4 mg 05/08/21 06:54 Ondansetron 4 Mg/2 Ml Vial IVP Q4H PRN PRN Nausea / Vomiting Sodium Chloride 0 ml 05/08/21 06:00 Normal Saline Flush 10 Ml Syr IV 06/04/21 23:59 PRN PRN Sodium Chloride 0 ml 05/08/21 06:00 Normal Saline 10 Ml Vial IJ 06/04/21 23:59 DIRECTED PRN Sterile Water 0 ml 05/08/21 06:00 Water,Injection,Sterile 10 Ml Vial IJ 06/04/21 23:59 DIRECTED PRN PFSH Active Problems Active Problems: Problem Status Onset Code Palpitation R00.2 Screening for colon cancer Z12.11 Obesity E66.9 S/P cholecystectomy Z90.49 Alkaline phosphatase elevation R74.8 Well adult Hyperlipidemia, unspecified 04/28/18 E78.5 Hemangioma of liver 04/28/18 D18.03 Diastasis of rectus abdominis 04/28/18 M62.08 Calculus of gallbladder without cholecystitis without obstruction 04/28/18 K80.20 Medical History Medical History Alkaline phosphatase elevation Calculus of gallbladder without cholecystitis without obstruction (04/28/18) Diastasis of rectus abdominis (04/28/18) Hemangioma of liver (04/28/18) Hyperlipidemia, unspecified (04/28/18) Well adult Surgical History Surgical History S/P cholecystectomy (~10/01/18) Tobacco Smoking/Tobacco Use Status: Former Tobacco Use Tobacco: How many years used: 20 Passive smoking exposure: Yes Second hand exposure: Yes Alcohol Alcohol Intake: former Substance Use Substance use: Binges Substance use type: marijuana Vital Signs and Lab Results Vital Signs Most Recent Vital Signs in EMR: Temp Pulse Resp BP Pulse Ox 36.5 C 78 16 118/77 98 05/08/21 08:13 05/08/21 08:13 05/08/21 08:13 05/08/21 08:13 05/08/21 08:13 Lab Results Blood Type / Crossmatch: No Data to Display Complete Blood Count: No Data to Display Complete Metabolic Panel: No Data to Display Liver Function Panel: No Data to Display Coagulation Panel: No Data to Display Cardiac Panel: No Data to Display Arterial Blood Gas: No Data to Display Venous Blood Gas: No Data to Display Pancreas Panel: No Data to Display Thyroid Panel: No Data to Display Infectious Disease: Coronavirus (COVID-19)(PCR) Negative (Negative) 05/05/21 08:26 05/05/21 Coronavirus 2019 Source Nasal/Nares 05/05/21 08:26 05/05/21 Blood Cultures: No Data to Display Toxicology Panel: No Data to Display Imaging and Studies Imaging and Studies EKG Summary: Conclusion Sinus rhythm...normal P axis, V-rate 60- 99 Left axis deviation...QRS axis (-30,-90) ST elev, probable normal early repol pattern...ST elevation, age<55 05/03/21 Anesthesia Assessment and Plan Anesthesia History Personal History: No History of Anesthesia Complications Family History: No Family History of Anesthesia Complications Exercise Tolerance Exercise Tolerance: Metabolic Equivalents>4 Pertinent Negatives Pertinent Negatives: No Symptoms of GERD, No Major Pulmonary Symptoms or Complaints, No History of CVA/TIA and Other (Palpitations last week, no chest pain or SOB) Cardiac & Pulmonary Exam Cardiac Exam: Normal S1/S2 Heart Sounds Pulmonary Exam: Clear Bilateral Breath Sounds Airway Exam Known Difficult Airway: No Mallampati Class: 1 Mouth Opening: Normal (> 3cm) Thyromental Distance: Greater than 3 cm Neck Range of Motion: Full ROM Neck Circumference: Normal Teeth Condition: Removable Dentures/Plates Upper and Edentulous ASA Classification ASA Score: ASA 2 Emergency Case?: No NPO Status NPO Status: NPO Clears >2 hours, Solids >8 hours Anesthesia Plan Resuscitation Status: Full Code Anesthesia Technique: General Anesthesia Airway Planned: Natural Airway Monitors Used: Standard Monitors
[2021-05-08 08:36] VITALS: BMI 34.0
[2021-05-08] MEDS: Lactated Ringers 1,000 ML 80 ML IV (08:41)
--- NOTE | 2021-05-08 09:15 | BOWEL_PTH ---
PATIENT: James Prasad LOC: [facility] U#:[id number] AGE/SX: 51/M ROOM: RE05/08/[address]: Amy Mena MD : 1970 BED: DIS: 05/08/2021 SPEC #: [id number] RECD: 05/08/21 12:56 STATUS: ALLIE REQ #: [id number] ELIZABETH: 05/08/21 09:[address]: Amy Mena DEPT: Surgical Specimen RECD BY: Anny Rivero ENTERED: 05/08/21 12:57 SP TYPE: Bowel OTHR DR: Jose E Jessica MD Tissues: 1 - BIOPSY BOWEL Procedures: GROSS AND MICRO LEVEL 4 Comments: [id number]
[2021-05-08 09:34] VITALS: BP 112/74; PULSE 69; RESP 16; TEMP 36.6; O2SAT 95
--- NOTE | 2021-05-08 10:03 | W.ANESPOSTOP ---
Postoperative Evaluation Date, Time and Location Date Performed: 05/08/21 Time Performed: 09:35 Patient Location: Day Surgery Unit Vital Signs Most Recent Imported Vital Signs: Most Recent Vital Signs Temp Pulse Resp BP Pulse Ox 36.6 C 69 16 112/74 95 05/08/21 09:34 05/08/21 09:34 05/08/21 09:34 05/08/21 09:34 05/08/21 09:34 Pain Score Most Recent Pain Score: Most Recent Pain Score Pain Level 0 05/08/21 09:34 Assessment Mental Status: Awake (Alert & Oriented to Patient Baseline) Airway and Respiratory Function: Patent airway with normal (patient baseline) respiratory exam Cardiovascular Function: Hemodynamically Stable Hydration Status: Adequately Hydrated Nausea & Vomiting: No Nausea or Vomiting Pain: Pt. Denies Any Pain Peripheral Nerve Block: Patient did not receive a nerve block
[2021-05-08 10:08] VITALS: BP 124/75; PULSE 57; RESP 18; TEMP 36.5; O2SAT 95
== END 2021-05-08 10:25 | disposition home or self-care (01) ==
LOC: SUR 08:09
PROVIDERS: PCP Family Medicine; Visit Provider Surgery
PROC: 0DJD8ZZ Inspection of Lower Intestinal Tract, Via Natural or Artificial Opening Endoscopic (ICD-10-PCS; CPT 45378; principal; 2021-05-08 09:00)
DX: Z12.11 Encounter for screening for malignant neoplasm of colon (principal); K52.89 Other specified noninfective gastroenteritis and colitis
CPT/HCPCS: 45380; 88305; J2001; J2704

== ENCOUNTER 2022-01-03 03:16 | Outpatient (CLI) | payer BC, SELFPAY ==
[2022-01-03 15:40] LABS: HCT 44.6 % (40.0-50.0); HGB 14.4 g/dL (13.5-17.5); MCH 26.3 pg (27.0-33.0); MCHC 32.3 % (32.0-36.0); MCV 81.4 fL (80-95); MPV 8.1 fL (8.0-11.0); Platelet Count 217 10^3/uL (130-400); RBC 5.48 10^6/uL (4.36-5.78); RDW 13.2 % (11.8-14.1); RDW-SD 39.2 fL; WBC 9.72 10^3/uL (4.4-10.8)
[2022-01-03 17:02] LABS: ALT 97 U/L (16-63); AST 46 U/L (15-37); Alkaline Phosphatase 185 U/L (46-116); Anion Gap 10.3 mmol/L (3-11); BUN 20 mg/dL (7-18); Bilirubin, Total 0.3 mg/dL (0.2-1.0); CO2 24.7 mmol/L (21.0-32.0); Calcium 8.9 mg/dL (8.5-10.1); Chloride 103 mmol/L (98-107); Glucose 87 mg/dL (74-106); Potassium 4.1 mmol/L (3.5-5.1); Sodium 138 mmol/L (136-145); Total Protein 7.3 g/dL (6.4-8.2)
== END 2022-01-03 03:17 | disposition home or self-care (01) ==
LOC: LBO 03:16
PROVIDERS: PCP Family Medicine; Visit Provider Family Medicine
DX: R53.83 Other fatigue (principal); R73.9 Hyperglycemia, unspecified; R10.9 Unspecified abdominal pain
CPT/HCPCS: 36415; 80053; 85027; 83036

== ENCOUNTER 2022-04-13 17:25 | Outpatient (REF) | payer BC, SELFPAY ==
--- NOTE | 2022-04-13 16:30 | SKI_PTH ---
PATIENT: James Prasad LOC: [facility] U#:[id number] AGE/SX: 52/M ROOM: RE04/13/[address]: Janette Orourke : 1970 BED: DIS: 04/13/2022 SPEC #: [id number] RECD: 04/16/22 08:59 STATUS: ALLIE REQ #: [id number] ELIZABETH: 04/13/22 16:[address]: Janette Orourke DEPT: Surgical Specimen RECD BY: Arabella Briseno ENTERED: 04/16/22 09:00 SP TYPE: MARIEL HINES DR: Jose E Jessica MD Tissues: 1 - SKIN BIOPSY(SHAVE/PUNCH) Procedures: SKIN LEVEL 4 Comments: [id number]
== END 2022-04-13 17:26 | disposition home or self-care (01) ==
LOC: LBN 17:25
PROVIDERS: PCP Family Medicine; Visit Provider Family Medicine
DX: D18.01 Hemangioma of skin and subcutaneous tissue (principal)
CPT/HCPCS: 88305

== ENCOUNTER 2023-01-02 08:04 | Outpatient (CLI) | payer BC, SELFPAY ==
[2023-01-02 12:33] LABS: HCT 45.4 % (40.0-50.0); HGB 14.7 g/dL (13.5-17.5); MCH 26.2 pg (27.0-33.0); MCHC 32.4 % (32.0-36.0); MCV 81 fL (80-95); MPV 8.5 fL (8.0-11.0); Platelet Count 270 10^3/uL (130-400); RBC 5.61 10^6/uL (4.36-5.78); RDW 13.1 % (11.8-14.1); RDW-SD 38.5 fL; WBC 7.82 10^3/uL (4.4-10.8)
[2023-01-02 12:48] LABS: ALT 100 U/L (16-63); AST 44 U/L (15-37); Albumin 3.8 g/dL (3.4-5.0); Alkaline Phosphatase 202 U/L (46-116); Anion Gap 10.5 mmol/L (3-11); BUN 11 mg/dL (7-18); Bilirubin, Direct 0.1 mg/dL (0.0-0.2); Bilirubin, Total 0.5 mg/dL (0.2-1.0); CO2 26.5 mmol/L (21.0-32.0); Calcium 8.9 mg/dL (8.5-10.1); Chloride 104 mmol/L (98-107); Estimated GFR 90.56 (mL/min/1.73m2); Glucose 104 mg/dL (74-106); Potassium 3.8 mmol/L (3.5-5.1); Sodium 141 mmol/L (136-145); Total Protein 7.5 g/dL (6.4-8.2)
== END 2023-01-02 08:05 | disposition home or self-care (01) ==
LOC: LOS 08:05
PROVIDERS: PCP Family Medicine; Referring Provider Family Medicine; Visit Provider Family Medicine
DX: G72.89 Other specified myopathies (principal); R53.83 Other fatigue; E87.1 Hypo-osmolality and hyponatremia
CPT/HCPCS: 36415; 80048; 80076; 85027

== ENCOUNTER 2023-01-23 12:16 | Outpatient (REF) | payer BC, SELFPAY | END 2023-01-23 12:17 | disposition home or self-care (01) | LOC: LBN 12:16 | PROVIDERS: PCP Family Medicine; Visit Provider Nurse Practitioner Family | DX: J02.9 Acute pharyngitis, unspecified (principal) | CPT/HCPCS: 87070 ==

== ENCOUNTER 2024-05-12 03:04 | Outpatient (CLI) | payer BC, SELFPAY ==
[2024-05-12 12:25] LABS: HCT 46.8 % (40.0-50.0); MCH 26.5 pg (27.0-33.0); MCHC 32.1 % (32.0-36.0); MCV 83 fL (80-95); MPV 8.6 fL (8.0-11.0); Platelet Count 225 10^3/uL (130-400); RBC 5.66 10^6/uL (4.36-5.78); RDW 13.5 % (11.8-14.1); RDW-SD 40.1 fL; WBC 8.65 10^3/uL (4.4-10.8)
[2024-05-12 12:58] LABS: ALT 66 U/L (16-63); AST 36 U/L (15-37); Albumin 3.7 g/dL (3.4-5.0); Alkaline Phosphatase 173 U/L (46-116); Anion Gap 8.6 mmol/L (3-11); BUN 12 mg/dL (7-18); Bilirubin, Total 0.46 mg/dL (0.2-1.0); CO2 26.4 mmol/L (21.0-32.0); Calculated LDL 110 mg/dL (<100); Chloride 104 mmol/L (98-107); Cholesterol 205 mg/dL (<200); Estimated GFR 89.44 (mL/min/1.73m2); Glucose 103 mg/dL (74-106); HDL Cholesterol 44 mg/dL (40-60); Potassium 3.9 mmol/L (3.5-5.1); Sodium 139 mmol/L (136-145); Total Protein 7.5 g/dL (6.4-8.2); Triglyceride 258 mg/dL (<150)
[2024-05-12 18:54] LABS: Hemoglobin A1C 6.1 % (<5.7)
== END 2024-05-12 03:05 | disposition home or self-care (01) ==
LOC: LOS 03:04
PROVIDERS: PCP Family Medicine; Visit Provider Family Medicine
DX: R53.83 Other fatigue (principal); E11.51 Type 2 diabetes mellitus with diabetic peripheral angiopathy without gangrene; I70.209 Unspecified atherosclerosis of native arteries of extremities, unspecified extremity; R10.9 Unspecified abdominal pain; E78.5 Hyperlipidemia, unspecified; R68.89 Other general symptoms and signs; E66.9 Obesity, unspecified; R73.03 Prediabetes
CPT/HCPCS: 36415; 80053; 80061; 85027; 83036